=== PATIENT | female | born 1985 | race Caucasian/White ===

== ENCOUNTER 2021-06-17 08:26 | Emergency (ER) | payer SELFPAY ==
[2021-06-17 09:16] LABS: HEMOGLOBIN 14.8 gm/dl (12.3-15.3); RED BLOOD COUNT 5.13 M/UL (4.00-5.10)
[2021-06-17 09:42] LABS: BUN/CREATININE RATIO 10 (0-10)
== END 2021-06-17 10:56 | disposition home or self-care (01) ==
LOC: ER1 08:26
PROVIDERS: Physician Assistant
DX: R06.00 Dyspnea, unspecified (principal); R07.89 Other chest pain; Z20.822 Contact with and (suspected) exposure to COVID-19
CPT/HCPCS: 0240U; 71045; 80053; 82550; 82553; 83874; 83880; 84484; 84703; 85025; 85379; 93005; 99285

== ENCOUNTER 2022-08-18 10:38 | Observation (INO) | payer OTHER ==
[~2022-08-18] VITALS: Ht 160 cm; Wt 117.1 kg
[~2022-08-18 10:38] MED LIST: AMOX TR-K CLV1 EAC4 PO
[2022-08-18 15:15] LABS: HEMOGLOBIN 14.8 gm/dl (12.3-15.3); RED BLOOD COUNT 5.18 M/UL (4.00-5.10); WHITE BLOOD COUNT 19.5 K/UL (4.5-11.0)
[2022-08-18 15:43] LABS: BUN/CREATININE RATIO 17 (0-10)
[2022-08-19] MEDS ORDERED: ESTARYLLA 0.251 EACH PO (12:54)
[2022-08-19] MEDS ORDERED: FLONASE 0.05% N16 GM (12:55)
[2022-08-19] MEDS ORDERED: MECLIZINE HCL25 MG PO (16:57)
== END 2022-08-19 17:50 | disposition home or self-care (01) ==
LOC: ER1 10:38 → MED SURG 4 20:16 → CDU 20:16 → MED SURG 4 20:16 → CDU 20:16 → MED SURG 4 08-19 01:06
PROVIDERS: Student in an Organized Health Care Education/Training Program; ADMIT Internal Medicine
DX: R42 Dizziness and giddiness (principal); D72.829 Elevated white blood cell count, unspecified; E66.01 Morbid (severe) obesity due to excess calories; Z68.42 Body mass index [BMI] 45.0-49.9, adult; Z79.899 Other long term (current) drug therapy
CPT/HCPCS: 36415; 70450; 70496; 70498; 70551; 80053; 80061; 80307; 81001; 82550; 82553; 82607; 82746; 84439; 84443; 84484; 84550; 84703; 85025; 86140; 97161; 97165; 99285; G0378; Q9967